=== PATIENT | female | born 1965 | race American Indian/Alaskan Native ===

== ENCOUNTER 2017-07-18 11:15 | Emergency (ER) | payer BC, OTHER ==
[~2017-07-18] VITALS: Ht 167.6 cm; Wt 81.7 kg
[2017-07-18] MEDS ORDERED: NAPROXEN500 MG PO (12:46)
[2017-07-18] MEDS ORDERED: VANCOCIN HCL250 MG PO (15:15)
== END 2017-07-18 16:00 | disposition home or self-care (01) ==
LOC: ED 11:15
DX: R10.30 Lower abdominal pain, unspecified (principal); F17.200 Nicotine dependence, unspecified, uncomplicated; Z79.899 Other long term (current) drug therapy
CPT/HCPCS: 74177; 80053; 85025; 87493; 99284; Q9967

== ENCOUNTER 2019-05-20 18:18 | Emergency (ER) | payer BC, OTHER ==
[~2019-05-20] VITALS: Ht 167.6 cm; Wt 81.7 kg
[~2019-05-20 18:18] MED LIST: NAPROXEN500 MG PO; VANCOCIN HCL250 MG PO
[2019-05-20] MEDS ORDERED: CEFDINIR300 MG PO (18:35)
[2019-05-20] MEDS ORDERED: ZYRTEC10 MG PO (18:35)
[2019-05-20] MEDS ORDERED: ONDANSETRON ODT4 MG PO (18:35)
[2019-05-20] MEDS ORDERED: ONDANSETRON ODT4 MG SL (23:18)
[2019-05-20] MEDS ORDERED: VANCOCIN HCL125 MG PO (23:18)
== END 2019-05-21 00:19 | disposition home or self-care (01) ==
LOC: ED 18:18
DX: K52.9 Noninfective gastroenteritis and colitis, unspecified (principal); F17.200 Nicotine dependence, unspecified, uncomplicated; Z88.8 Allergy status to other drugs, medicaments and biological substances; Z79.899 Other long term (current) drug therapy
CPT/HCPCS: 74018; 74177; 80053; 81001; 83735; 84703; 85025; 87324; 87449; 87493; 96361; 99284-25; J1170; J2405; J7030; J7040; Q9967

== ENCOUNTER 2019-07-18 09:24 | Day surgery (SDC) | payer BC, OTHER ==
[~2019-07-18] VITALS: Ht 167.6 cm; Wt 81.7 kg
[~2019-07-18 09:24] MED LIST changes: +CEFDINIR300 MG PO; +ONDANSETRON ODT4 MG PO; +ONDANSETRON ODT4 MG SL; +VANCOCIN HCL125 MG PO; +ZYRTEC10 MG PO
--- NOTE | 2019-07-18 11:57 | NUR ---
07/18/19 1157 Vita Caro 1137 PATIENT TO PACU, ASLEEP, NON RESPONSIVE TO STIMULUS. 1142 PATIENT RESPONDING TO STERNAL RUB, BACK TO SLEEP QUICKLY. PASSING FLATULANCE. BREATHING EVEN AND UNLABORED. 1152 STERNAL RUB TO AWAKE PATIENT AND ENCOURAGE DEEP BREATHING. PATIENT ABLE TO TAKE 2 DEEP BREATHS BEFORE FALLING BACK TO SLEEP. PATIENT SNORING. TURNED PATIENT TO BACK, PATIENT STARTING TO WAKE EASILY TO VERBAL STIMULOUS. PATIENT TAKING DEEP BREATHS.
--- NOTE | 2019-07-18 13:03 | NUR ---
PATIENT BACK IN DAY SURGERY ROOM FROM PACU. DENIES PAIN. DENIES NAUSEA. AWAKE AND ALERT. IV FLUIDS INFUSING. FAMILY AT BEDSIDE. CALL LIGHT WITHIN REACH.
--- NOTE | 2019-07-18 16:58 | OR ---
[facility] [address] [place], [place] [address] Signed DATE OF OPERATION: 07/18/2019 SURGEON: Giselle De La Rosa MD PREOPERATIVE DIAGNOSES: 1. Generalized abdominal pain, gas and bloating. 2. History of Clostridium difficile colitis x2. POSTOPERATIVE DIAGNOSIS: Hjpmwae-qf-vbqsmjmp internal hemorrhoids. PROCEDURE: Colonoscopy with random cold biopsies. ESTIMATED BLOOD LOSS: None. INDICATIONS: Kisha is a 54-year-old female, asked to see me for mainly a screening colonoscopy. She has been trying to come in for several years. Unfortunately, her dad had and her mom had a stroke. Her has been ill several times and finally retired. She and her both ended up with C diff colitis and that was quite miserable. She has had it twice. She has been having generalized abdominal pain, gas and bloating. She is quite concerned about this whole C diff colitis issue. Overall, she is actually much better. In the office, I had given her a pamphlet on colonoscopy. We looked at that together along with the risks including, but not limited to gas bloating, crampy abdominal pain, bleeding, perforation requiring surgery, and missed diagnosis. We also discussed the need for IV conscious sedation. She had expressed understanding and wished to proceed. PROCEDURE NOTE: Kisha was taken into our endoscopy suite and placed in the left lateral decubitus position. She was given 9 mg of Versed and 250 mcg of fentanyl to cover the case. A digital rectal exam was performed and this was unremarkable. The adult colonoscope was introduced and advanced quite readily right up to the hepatic flexure. The hepatic flexure actually took probably 5-10 minutes to get through. We finally had to rotate her into the supine position and use additional abdominal compression as well as sedation in order to get the camera around her hepatic flexure. We then passed directly into the cecum itself. We could easily see the appendiceal orifice and the ileocecal valve. Her prep was good. The scope was slowly withdrawn. We took pictures throughout Electronically Signed By: GISELLE DE LA ROSA MD 07/18/19 1658 PATIENT NAME: KISHA JEAN OPERATIVE REPORT DATE OF : 65 REPORT #: [id number] PHYSICIAN: GISELLE DE LA ROSA MD PCP: [facility] REPORT IS CONFIDENTIAL AND NOT TO BE RELEASED WITHOUT AUTHORIZATION [facility] [address] [place] [id number] Signed for photodocumentation. Her entire colon was completely unremarkable. No polyps. No diverticulosis. The rectum was unremarkable. Upon retroflexion of the scope, she has zoothuz-[id number]-goqzmhjy internal hemorrhoids. After this, the gas was suctioned out and colonoscope removed. Kisha tolerated the procedure quite well. RECOMMENDATIONS: We had taken several random biopsies in the colon because of the history of diarrhea. Nevertheless, we saw no evidence of any C diff colitis. We will see Kisha back in 7 to 10 days to review her results. Giselle De La Rosa MD ALB/MODL /[id number] cc: YUSEF Morton MD Copies: GISELLE DE LA ROSA MD ~ Electronically Signed By: GISELLE DE LA ROSA MD 07/18/19 1658 PATIENT NAME: KISHA JEAN OPERATIVE REPORT DATE OF : 65 REPORT #: [id number] PHYSICIAN: GISELLE DE LA ROSA MD PCP: [facility] REPORT IS CONFIDENTIAL AND NOT TO BE RELEASED WITHOUT AUTHORIZATION
--- NOTE | 2019-07-19 16:27 | PATH ---
[facility] [address] [place], [place] [address] Signed SPECIMEN(S): A COLON SPECIMEN SOURCE: A. COLON CLINICAL HISTORY: Diarrhea, history of C diff. Dx: Internal hemorrhoids. MICROSCOPIC DESCRIPTION: Histologic sections of all submitted blocks are examined by light microscopy. These findings, together with the gross examination, support the pathologic diagnosis. FINAL PATHOLOGIC DIAGNOSIS: Colon, biopsy: - Colonic mucosa with no histopathologic abnormality. - Negative for dysplasia or malignancy. NAL:cml:C2NR GROSS DESCRIPTION: The specimen, labeled "LS, colon biopsy," is received in formalin and consists of three pink-aranda soft tissue fragment(s) that measure 0.3-0.4 cm in greatest dimension. The specimen is entirely submitted in cassette (A1). JS (under the direct supervision of a pathologist) The Gross Description was prepared using a voice recognition system. The report was reviewed for accuracy; however, sound-alike word errors, addition and/or deletions may occur. If there is any question about this report, please contact Client Services. PERFORMING LABORATORY: The technical component was performed by [facility], [address] [place] [id number] (Traffic Supervisor: Denice Alonzo MD; CLIA# [id number]). [facility] [address] [address] (Traffic Supervisor: Patricio Shabazz MD; CLIA# [id number]). Diagnostician: Elaine Humphries MD Pathologist Electronically Signed 07/19/2019 PATIENT NAME: KISHA JEAN PATHOLOGY DATE OF : 65 REPORT #: [id number] PHYSICIAN: MEHDI PATHOLOGY PCP: [facility] REPORT IS CONFIDENTIAL AND NOT TO BE RELEASED WITHOUT AUTHORIZATION [address] [address] Signed Copies: ~ PATIENT NAME: KISHA JEAN PATHOLOGY DATE OF : 65 REPORT #: [id number] PHYSICIAN: MEHDI PATHOLOGY PCP: [facility] REPORT IS CONFIDENTIAL AND NOT TO BE RELEASED WITHOUT AUTHORIZATION
== END 2019-07-18 13:40 | disposition home or self-care (01) ==
LOC: DS 09:24 → OPS 09:24 → DS 09:28 → OPS 09:28 → DS 10:30 → OPS 10:30
PROVIDERS: Colon & Rectal Surgery
PROC: 0DBE8ZX Excision of Large Intestine, Via Natural or Artificial Opening Endoscopic, Diagnostic (ICD-10-PCS; principal; 2019-07-18 10:30)
DX: K64.8 Other hemorrhoids (principal); R10.84 Generalized abdominal pain; R19.7 Diarrhea, unspecified; R14.0 Abdominal distension (gaseous); E66.9 Obesity, unspecified; F41.9 Anxiety disorder, unspecified; G47.00 Insomnia, unspecified; F17.210 Nicotine dependence, cigarettes, uncomplicated; Z86.19 Personal history of other infectious and parasitic diseases; Z88.1 Allergy status to other antibiotic agents; Z68.28 Body mass index [BMI] 28.0-28.9, adult
CPT/HCPCS: 99153; G0500; J2250; J2405; J3010; J7121

== ENCOUNTER 2019-12-03 09:34 | Emergency (ER) | payer BC, OTHER ==
[~2019-12-03] VITALS: Ht 167.6 cm; Wt 81.7 kg
== END 2019-12-03 10:30 | disposition home or self-care (01) ==
LOC: ED 09:34
DX: S63.286A Dislocation of proximal interphalangeal joint of right little finger, initial encounter (principal); F17.200 Nicotine dependence, unspecified, uncomplicated; Z88.1 Allergy status to other antibiotic agents; X58.XXXA Exposure to other specified factors, initial encounter
CPT/HCPCS: 26770; 73140; 99283-25